=== PATIENT | female | born 1995 | race American Indian/Alaskan Native ===

== ENCOUNTER 2019-10-28 17:39 | Emergency (ER) | payer SELFPAY ==
[2019-10-28 17:49] VITALS: BP 127/81
--- NOTE | 2019-10-28 18:00 | Emergency Department Report ---
Chief Complaint: Dental/Oral Stated Complaint: TEETH PAIN Time Seen by Provider: 10/28/19 17:55 - HPI History of Present Illness: 24-year-old female presents with left-sided dental pain for the past 3-4 days. Patient denies any bleeding, injury to the the mouth. . - ROS Review of Systems: As noted on in HPI - Exam Vital Signs: Vital Signs 10/28/19 17:43 Temperature 98.9 F Pulse Rate 98 H Respiratory 16 Rate Blood Pressure 127/81 O2 Sat by Pulse 99 Oximetry Physical Exam: Alert and oriented 3. No dental pain, no gingival swelling, MSE screening note: Focused history and physical exam performed. Due to findings the following was ordered: ED Medical Decision Making - Medical Decision Making Patient presents for a nonmedical emergency. Discussed patient to follow-up dentist. Vital signs are normal patient is in no acute distress. ED Disposition for MSE Clinical Impression: Pain due to dental caries Disposition: MED SCREENING EXAM-LEFT Is pt being admited?: No Does the pt Need Aspirin: No Condition: Stable Instructions: Toothache (ED) Referrals: CECELIA SHEARER MD [Staff Physician] - 3-5 Days [facility] [Outside] - 3-5 Days [facility] [Outside] - 3-5 Days [facility] [Outside] - 3-5 Days Forms: Work/School Release Form(ED) Time of Disposition: 18:04
== END 2019-10-28 18:00 | disposition left against medical advice (07) ==
LOC: ED 17:39
DX: K02.9 Dental caries, unspecified (principal)